=== PATIENT | male | born 2000 | race Caucasian/White ===

== ENCOUNTER 2024-03-15 20:45 | Observation (INO) | payer OTHER, SELFPAY ==
[2024-03-15 13:34] VITALS: BP 144/78
[2024-03-15 13:48] LABS: % Basophils 0.6 % (0-2); % Eosinophils 0.5 % (0-6); % Immature Granulocytes 0.3 % (0-0.5); % Lymphocytes 8.1 % (20.5-51.1); % Monocytes 6.9 % (1.7-9.3); % Neutrophils 83.6 % (42.2-75.2); Absolute Basophils 0.1 10^3/uL (0-0.2); Absolute Eosinophils 0.1 10^3/uL (0-0.7); Absolute Immature Granulocytes 0.1 10^3/uL (0-0.05); Absolute Lymphocytes 1.4 10^3/uL (1.2-3.4); Absolute Monocytes 1.2 10^3/uL (0.1-0.6); Absolute Neutrophils 14.6 10^3/uL (1.4-6.5); Hemoglobin 16.2 g/dL (13.0-18.0); Mean Corpuscular Hgb 30.7 pg (27.0-31.0); Mean Corpuscular Volume 85.4 fL (80.0-94.0); Mean Platelet Volume 10.5 fL (7.4-10.4); Nucleated Red Blood Cells % 0 % (-); Platelet Count 200 10^3/uL (130-400); Red Blood Cell Count 5.27 10^6/uL (4.70-6.10); Red Cell Dist. Width 11.7 % (11.5-14.5); White Blood Cell Count 17.5 10^3/uL (4.8-10.8)
[2024-03-15 14:03] LABS: ALT (SGPT) 21 U/L (0-50); AST (SGOT) 22 U/L (17-59); Albumin 5.1 g/dl (3.5-5.0); Alkaline Phosphatase 56 U/L (38-126); Blood Urea Nitrogen 14 mg/dl (9-20); Calcium 10.1 mg/dl (8.4-10.2); Carbon Dioxide 29 mmol/L (22-30); Chloride 100 mmol/L (98-107); Glucose 96 mg/dl (70-99); Lipase 43 U/L (23-300); Potassium 3.9 mmol/L (3.5-5.1); Sodium 137 mmol/L (135-145); Total Bilirubin 1.5 mg/dl (0.2-1.3); Total Protein 7.3 g/dl (6.3-8.2); eGFR > 60.00
[2024-03-15 14:07] VITALS: BMI 24.1
[2024-03-15] MEDS: OMNIPAQUE 50 ML PO (14:45)
--- NOTE | 2024-03-15 15:31 | ED.GENMED ---
History of Present Illness
General
Chief Complaint: Abdominal Pain
Source: patient
Exam Limitations: none
Time Seen by Provider: 03/15/24 14:04
Nursing documentation reviewed up to this point in time: agreed with
History of Present Illness
History of Present Illness:
23 y/o M
no sig pmh
here with rlq pain today at 930 am while working
ate at 830 and felt ok unti 930
thought maybe he had to move bowels but he had already moved bowels this morning
pain got worse and he got lightheaded and vomited x 1
now he feels a little better, wendi if he doesn't move around
pain is worse with bending
no urinary sypmtoms, fever, chills, diarrhea
Past History
Past History
ED Past Medical History: None
ED Past Surgical History: None
Social History
Tobacco: Non-smoker
Alcohol: None
Review of Systems
Review of Systems
Allergies reviewed?: Yes
All Other Systems: Not applicable
Phy Exam
Physical Exam
Physical Exam:
GENERAL: Alert , in no apparent distress
EYE: pupils equal and reactive
NECK: Supple
ENT: o/p clr, mmm.
CARDIAC: Regular rate and rhythm .
LUNGS: Clear breath sounds bilaterally, no acute respiratory distress, no wheezes/rales/rhonchi
ABDOMEN: Soft, mod RLQ tenderness, mild voluntary guarding; no rebound no cvat, normal bowel sounds
NEUROLOGICAL: Alert and oriented, no focal neuro deficits
SKIN: Warm and dry, skin intact.
MUSCULOSKELETAL: No edema, well perfused.
PSYCH: Normal and appropriate interaction.
Course
Orders/Labs/Results
Orders:
Orders
03/15/24 13:40
Complete Blood Count/With Diff Urgent
Comprehensive Metabolic Panel Urgent
Lipase Urgent
03/15/24 14:19
CT Abd/pel W Iv And Oral Contr Urgent
Comment:
Reason For Exam: rlq pain suspect appe
Iohexol [Omnipaque] See Protocol PO NOW STA
03/15/24 15:48
Urinalysis Reflex To Culture Urgent
Date Specimen was Collected: 03/15/24
Time Specimen was Collected: 15:46
03/15/24 17:29
Piperacillin/Tazo 3.375 Gram [Zosyn] 3.375 gram in 50 ml IV NOW
03/15/24 17:30
0.9% Sodium Chloride 1000 ml [Nss] 1,000 ml IV BOLUS
Abnormal Lab Results
03/15/24 03/15/24
13:40 15:48
WBC 17.5 H 10^3/uL
(4.8-10.8)
MPV 10.5 H fL
(7.4-10.4)
Abs Immat Gran (auto) 0.1 H 10^3/uL
(0-0.05)
Absolute Neuts (auto) 14.6 H 10^3/uL
(1.4-6.5)
Absolute Monos (auto) 1.2 H 10^3/uL
(0.1-0.6)
Neutrophils % 83.6 H %
(42.2-75.2)
Lymphocytes % 8.1 L %
(20.5-51.1)
Total Bilirubin 1.5 H mg/dl
(0.2-1.3)
Albumin 5.1 H g/dl
(3.5-5.0)
Urine Ketones Trace A
(Negative)
03/15/24 13:40
03/15/24 13:40
Vital Signs
Initial and Last Documented VS:
Initial Vital Signs
Temp Pulse Resp BP Pulse Ox
98.2 F 78 18 144/78 100
03/15/24 13:34 07/12/24 13:34 03/15/24 13:34 03/15/24 13:34 03/15/24 13:34
Last Documented Vital Signs
Temp Pulse Resp BP Pulse Ox
98.2 F 66 16 125/63 100
03/15/24 13:34 03/15/24 17:49 03/15/24 17:49 03/15/24 17:49 03/15/24 17:49
MDM/Problems Addressed
Differential Diagnosis Includes:
appendicitis, kidney stone, gastroenteritis
MDM/Problems Addressed:
23 y/o M with no sig pmh
rlq pain, nausea, vomiting today
afebrile
well appearing
tender focally RLQ
guarding but no rebound
leukocytosis on labs
ct shows acute uncomplicated appendicitis
d/w dr. williamson
will accept to his service.
sign out to [employer]OR at 7 pm per his request
zosyn
*Critical Care Note
Total Time (30-74mins, 75-104mins- exclusive of procedures): Not Applicable
ED Attending Note
-
Portions of this chart may have been created with voice recognition software.� Occasional wrong word or��sound alike� substitutions may have occurred due to the inherent limitations of voice recognition software.
Discharge Plan
Departure
Patient Disposition: Admit
Date of Disposition: 03/15/24
Time of Disposition: 17:30
Admit to: Med/Surg
Presentation/result/management discussed w/ accepting /: teri
Patient with high blood pressure during this ER visit?: No
Condition: Fair
Covid-19: Not Applicable
Discharge Problem:
Acute appendicitis
Prescriptions:
No Action
levothyroxine 112 mcg Tablet
112 mcg PO MOTUWETHFRSA
levothyroxine 112 mcg Tablet
224 mcg PO GEORGE
Referrals:
JonasPadmini Segovia MD [Family Provider] -
Interventions
Interventions:
*Risk Screen - Suicide Last Done: 03/15/24 14:09
*General Assessment Last Done: 03/15/24 13:34
*Neglect/Abuse Screening Last Done: 03/15/24 14:09
HT-Igdpmp-Ymetmiwqba Assessment Last Done: 03/15/24 14:09
Discharge Date and Time
Print Language: GREEK
[2024-03-15 16:21] LABS: Urine Albumin Negative (Neg - Trace); Urine Bilirubin Negative (Negative); Urine Character Clear (Clear); Urine Color Straw; Urine Glucose Negative (Negative); Urine Ketone Trace (Negative); Urine Leukocyte Negative (Negative); Urine Nitrite Negative (Negative); Urine Occult Blood Negative (Negative); Urine Specific Gravity 1.005 (<1.030); Urine Urobilinogen Negative (Neg - 1+); Urine pH 6.5 (5.0-9.0)
[2024-03-15] MEDS: NSS 1000 IV ×2 (17:48→22:27)
[2024-03-15] MEDS: ZOSYN 50 IV (17:48)
[2024-03-15 17:49] VITALS: BP 125/63
--- NOTE | 2024-03-15 20:11 | HPS.HSE ---
Addendum entered and electronically signed by Renny Lerma MD 03/16/24 11:36:
I saw and examined the patient.
The Advertising Coordinator's note was reviewed and I agree with the note.
Comment: Pt with RLQ pain for about 24 hrs, a/w n/v. Denies f/c, denies changes to urine or BMs. Never had this pain before. Worse with mvmt, improves with rest. Exam ttp RLQ. Plan OCTOR lap appy
Original Note:
Family Physician
-
Family Physician: Padmini Jonas
Chief Complaint
-
Abdominal pain
History of Present Illness
a 23 years old male present in ER with a complain of abdominal pain that started today at 9:30 am while he was working. Symptoms started with RLQ abdominal pain rated 7/10 of pain scale, pain increases with movement and decreases with rest. Patient
felt lightheaded and vomited x1. Denied nausea, chills, fever, SOB, chest pain, urinary symptoms, diarrhea, constipation or any other symptoms. 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
Medical History
Past Medical History
Past Medical History: Reports Other (Elpidio disease)
Past Surgical History: Reports None
Social History
Tobacco: Non-smoker
Alcohol: None
Drug: None
Personal: Other
Living: With Family
Employment: Employed
Family History
Family History: Not pertinent
Allergies / Home Medications
Allergies reflects when Allergies were last updated in [facility].
Home Medications with original date entered in [facility]
Allergy/Medication List:
Patient Allergies
Allergy/AdvReac Type Severity Reaction Status Date / Time
cashew nut Allergy Unknown Verified 03/15/24 13:35
Home Medications Table - record
�Medication �Instructions �Recorded �Confirmed
levothyroxine 112 mcg tablet 112 mcg PO MOTUWETHFRSA 03/15/24 03/15/24
levothyroxine 112 mcg tablet 224 mcg PO GEORGE 03/15/24 03/15/24
Review of Systems
-
History Source: Patient
A 12 point ROS was completed and negative except as noted: Yes
Constitutional: Reports No Symptoms
EENT: Reports No Symptoms
Respiratory: Reports No Symptoms
Cardiac: Reports No Symptoms
Abdomen/GI: Reports Abdominal Pain and Vomiting
: Reports No Symptoms
Musculoskeletal: Reports No Symptoms
Skin: Reports No Symptoms
Neurological: Reports No Symptoms
Hematologic/Lymphatic: Reports No Symptoms
Psych: Reports No Symptoms
Physical Exam
Vital Signs
Vital Signs
Temp Pulse Resp BP Pulse Ox
98.2 F 66 16 125/63 100
03/15/24 13:34 03/15/24 17:49 03/15/24 17:49 03/15/24 17:49 03/15/24 17:49
Physical Exam
General: No Apparent Distress
Respiratory: Clear
Cardiac: Regular Rhythm
GI: Soft and Tender (mild tenderness RLQ)
Musculoskeletal: No Edema
Neuro: Awake and AO x 3
Psych: Calm
Laboratory Results
-
03/15/24 13:40
03/15/24 13:40
Laboratory Results
Total Bilirubin 1.5 mg/dl (0.2-1.3) H 03/15/24 13:40
AST 22 U/L (17-59) 03/15/24 13:40
ALT 21 U/L (0-50) 03/15/24 13:40
Alkaline Phosphatase 56 U/L (38-126) 03/15/24 13:40
Lipase 43 U/L (23-300) 03/15/24 13:40
Data Reviewed
-
CT Scan: Discussed with Patient
Lab Data: Discussed with Patient
Impression/Plan
-
Abd/PLVS CT shows
Thickening of the appendix measuring up to 10 mm with mild surrounding inflammatory change. The appendix arises from the posterior aspect of the cecum approximately 4 cm below the umbilical level, and courses inferiorly and anteriorly. The bowel is
without evidence of obstruction, perforation or abscess.
WBC 17.5
IMPRESSION:
Acute appendicitis
PLAN:
Admit /observation/ med-surg (Dr. Lerma general surgery services)
IVF
NPO
abx Zosyn
antiemetics as needed
analgesics as needed
Elpidio disease
on Levothyroxine
DVT prophylaxis
Lovenox sq
Code status
Full code
[2024-03-15 21:15] VITALS: BP 123/74
[2024-03-15 21:41] VITALS: BP 120/65; BMI 23.2
--- NOTE | 2024-03-15 22:00 | TRANSFER ---
Pt admitted from ED to room 434-1. AAOx3. VSS, pt ambulated from stretcher to bed with no assistance. Pt oriented to room and call parry within reach.
[2024-03-15 23:00] VITALS: BP 118/70
[2024-03-16] VITALS (7 sets, daily range): BP systolic 110–132; BP diastolic 53–82
[2024-03-16] MEDS: ZOSYN 50 IV ×2 (00:30→05:11)
[2024-03-16] MEDS: SYNTHROID 112 MCG PO (05:11)
--- NOTE | 2024-03-16 11:38 | OR.RPT ---
Operative Report
Operative Report
Primary Surgeon: Maria Guadalupe
Pre-op Diagnosis: Acute appendicitis
Post-op Diagnosis: Same
Procedure Performed: Laparoscopic appendectomy
Anesthesia Type: GETA
Specimen / Cultures: Appendix
Estimated Blood Loss: 5cc
Complications: None immediate
Operative Findings: Mildly inflamed appendix, scant turbid fluid in pelvis, no purulence, stool or necrosis.
Date of Surgery: 03/16/24
Indications: This 23M developed right lower quadrant abdominal pain and on workup was found to have acute appendicitis. Laparoscopic appendectomy was elected.
Description of procedure: The patient was placed on the operating table in the supine position. General anesthesia was induced. A time-out was completed verifying correct patient, procedure, site, positioning, and special equipment prior to
beginning this procedure. An orogastric tube was placed. The abdomen was prepped and draped in the usual sterile fashion. A stab incision was made in left upper quadrant and the Veress needle was inserted. Proper position was confirmed by aspiration
and saline meniscus test. The abdomen was insufflated with carbon dioxide to a pressure of 12 mmHg. The patient tolerated insufflation well.
A 5mm optical trocar was then inserted at the left lower quadrant. The laparoscope was inserted and the abdomen inspected. No injuries from initial trocar placement or Veress needle insertion were noted. Additional trocars were then inserted in the
following locations: a 12-mm trocar at the umbilicus and a 5-mm trocar midline in the suprapubic space. The abdomen was inspected and no abnormalities were found. The table was placed in the Trendelenburg position with the right side up. The tip of
the appendix was gently grasped with an atraumatic grasper and retracted toward the patient�s feet and abdominal wall. The appendix was mildly inflamed. This maneuver exposed the appendiceal blood supply which was controlled with the Ligasure
device. Following this, a laparoscopic linear cutting stapler with a 45mm sanz load was deployed and used to transect the appendix at its base. The appendix was placed in an endoscopic retrieval bag, removed through the umbilical port, and passed
off the table as a specimen.
We then turned our attention to the staple line, which was noted to be hemostatic. Scant turbid fluid was suctioned from the pelvis. The umbilical trocar site was closed at the fascial level laparoscopically with 2-0 PDS under direct vision.
Secondary trocars were removed under direct vision and noted to be hemostatic. The laparoscope was withdrawn and the abdomen was allowed to collapse. The skin was closed with subcuticular sutures of 4-0 monocryl and topical skin adhesive. The
orogastric tube was removed.
The patient tolerated the procedure well and was taken to the postanesthesia care unit in stable condition.
[2024-03-16] MEDS: ZOSYN IV (11:56)
--- NOTE | 2024-03-16 12:29 | CM ---
Patient in OR.
IA completed.
Father answered questions.
Patient lives with father and twin brother.
Patient independent prior to admission.
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
No hx skilled needs.
OBS form reviewed.
PCP: Dr Jonas
Pharmacy: [facility] in [place]
Plan: home no needs.
[2024-03-16] MEDS: ROXICODONE 5 MG PO (12:52)
--- NOTE | 2024-03-16 14:40 | W.DS.TRANS ---
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
-
Discharge Instructions:
Discharge Diagnosis/Procedures Laparoscopic appendectomy
Diet No restrictions
Activity No strenuous activity
Driving Restrictions No driving for 24 hours
Bathing Restrictions OK to Shower
Wound Care Allow skin glue to flake off on its own.
Instructions: Appendectomy, Laparoscopic Surgery (DC)
Stand-Alone Forms:
Changes to Home Medications: No
Discharge Medications:
DC Medications w/original date entered in [facility]
levothyroxine 112 mcg tablet 112 mcg PO MOTUWETHFRSA Thyroid 03/15/24
levothyroxine 112 mcg tablet 224 mcg PO GEORGE Thyroid 03/15/24
oxycodone 5 mg tablet 5 - 10 mg (1 - 2 x 5 mg) PO Q4HPRN PRN moderate to severe pain #10 tabs 03/16/24
Home Medication Changes
Pending Results: No
== END 2024-03-16 14:59 | disposition home or self-care (01) ==
LOC: 4 WEST ACU 20:45
PROVIDERS: Emergency Medicine; Physician Assistant; ADMITTING PHYSICIAN Surgery; EMERGENCY PHYSICIAN Emergency Medicine; FAMILY PHYSICIAN Family Medicine
DX: K35.80 Unspecified acute appendicitis (principal); R10.31 Right lower quadrant pain; R42 Dizziness and giddiness; R11.2 Nausea with vomiting, unspecified; E06.3 Autoimmune thyroiditis; Z79.890 Hormone replacement therapy
CPT/HCPCS: 44970; 88304; 74177; 80053; 81003; 83690; 85025; 96365; 99284; G0378; Q9967